=== PATIENT | female | born 1960 | race Caucasian/White ===

== ENCOUNTER → 2017-02-19 | Outpatient (CLI) | payer MEDICARE, BC ==
[~2017-02-19] MED LIST: ASTAGRAF XL5 MG PO; BYSTOLIC10 MG PO; CARDURA4 M1 PO; COMBIPATCH 0.01 EACH TD; DYAZIDE 37.5/251 CAP; EPOGEN2000 U/ML IJ; FERREX 150 FOR1 EACH PO; FERRIC X-150150 MG PO; FLUOXETINE HCL20 M1 PO; KCL; LIPITOR20 MG PO; NAPROSYN250 M1 PO; NEURONTIN300 MG PO; NEXIUM PO; NORVASC; PREDNISONE10 MG PO; RENVELA800 MG PO; VITAMIN D31000 UNI1 PO; ZETIA PO; ZOCOR PO; ZORTRESS0.75 MG PO; ZYRTEC PO; [UNRECOGNIZED DRUG - OTHER] PO
[2017-02-19 15:53] LABS: HEMATOCRIT 27.4 % (35.0-45.0); HEMOGLOBIN 8.6 gm/dL (12.0-16.0)
== END | disposition home or self-care (01) ==
LOC: CSSDAY 10:52
PROVIDERS: Internal Medicine Nephrology
DX: N18.4 Chronic kidney disease, stage 4 (severe) (principal); D63.1 Anemia in chronic kidney disease
CPT/HCPCS: 36415; 85014; 85018; 96372; J0885

== ENCOUNTER 2017-02-23 23:59 | Emergency (ER) | payer MEDICARE, BC ==
--- NOTE | ~2017-02-23 | EKG ---
PATIENT: YOHAN ALVAREZ UNIT #: [id number] Ventricular Rate: 76 BPM Atrial Rate: 76 BPM P-R Interval: 142 ms QRS Duration: 84 ms Q-T Interval: 392 ms QTC Calculation(Bezet): 441 ms P [place]: 41 degrees Calculated R [place]: 36 degrees Calculated T [place]: 62 degrees Diagnosis Line: Normal sinus rhythm Diagnosis Line: Normal ECG Diagnosis Line: When compared with ECG of 06-JUN-2016 07:25, Diagnosis Line: No significant change was found Diagnosis Line: Confirmed by JACI WARE MD ([id number]) on 02/24/2017 Diagnosis Line: 10:09:42 PM INTERPRETING MD: JEANIE BRITT
[~2017-02-23 23:59] MED LIST changes: -ASTAGRAF XL5 MG PO; -BYSTOLIC10 MG PO; -CARDURA4 M1 PO; -COMBIPATCH 0.01 EACH TD; -FERREX 150 FOR1 EACH PO; -FLUOXETINE HCL20 M1 PO; -LIPITOR20 MG PO; -NEURONTIN300 MG PO; -PREDNISONE10 MG PO; -ZETIA PO; -ZORTRESS0.75 MG PO
[2017-02-24 02:52] LABS: BASOPHIL% 0.2 % (0-2.5); EOSINOPHIL# 0.1 X10e3 (0-0.7); EOSINOPHIL% 1.5 % (0.0-7.0); HEMOGLOBIN 9.4 gm/dL (12.0-16.0); LYMPHOCYTE# 0.4 X10e3 (1.0-3.5); LYMPHOCYTE% 6.1 % (17.0-45.0); MEAN CELL VOLUME 86.6 FL (83-96); MEAN CORPUSCULAR HEMOGLOBIN 27.1 PG (28-34); MEAN CORPUSCULAR HGB CONC 31.3 g/dL (30-36); MEAN PLATELET VOLUME 8.2 FL (6.5-11.5); MONOCYTE# 0.6 X10e3 (0-1.0); MONOCYTE% 8.8 % (3.0-12.0); NEUTROPHIL# 6.1 X10e3 (1.5-7.1); NEUTROPHIL% 83.4 % (40-75); PLATELET COUNT 158 X10e3 (140-420); RED BLOOD COUNT 3.47 X10e (3.90-5.30); RED CELL DISTRIBUTION WIDTH 16.5 % (11.0-15.5); WHITE BLOOD COUNT 7.3 X10e3 (4.0-10.5)
[2017-02-24 02:54] LABS: DIFF IND NO
[2017-02-24 03:15] LABS: ALBUMIN SERUM 3.5 g/dL (3.5-5.0); BILIRUBIN, DIRECT 0.1 mg/dL (0.0-0.2); BILIRUBIN,INDIRECT 0.7 mg/dL (0.0-0.9); BILIRUBIN,TOTAL 0.8 mg/dL (0.2-2.0); BUN/CREATININE RATIO 14.82; CALCIUM SERUM 9.3 mg/dL (8.4-10.2); CREATININE SERUM 2.9 mg/dL (0.6-1.4); GLOM FILT RATE Estimated 17.3 mL/min (>60); POTASSIUM 4.2 mmol/L (3.5-5.1); PROTEIN TOTAL SERUM 6.7 g/dL (6.0-8.3)
[2017-07-14] MEDS ORDERED: ZETIA PO (09:59)
[2017-07-14] MEDS ORDERED: LIPITOR20 MG PO (09:59)
[2017-07-14] MEDS ORDERED: FLUOXETINE HCL20 M1 PO (09:59)
[2017-07-14] MEDS ORDERED: CARDURA4 M1 PO (10:00)
[2017-07-14] MEDS ORDERED: BYSTOLIC10 MG PO (10:02)
[2017-07-14] MEDS ORDERED: COMBIPATCH 0.01 EACH TD (10:03)
[2017-07-14] MEDS ORDERED: PREDNISONE10 MG PO (13:35)
[2017-07-14] MEDS ORDERED: ZORTRESS0.75 MG PO (13:36)
[2017-07-14] MEDS ORDERED: NEURONTIN300 MG PO (13:36)
[2017-07-14] MEDS ORDERED: ASTAGRAF XL5 MG PO (13:37)
[2017-07-14] MEDS ORDERED: FERREX 150 FOR1 EACH PO (13:37)
== END 2017-02-24 05:02 | disposition home or self-care (01) ==
LOC: CED 23:59
PROVIDERS: Emergency Medicine
DX: K21.0 Gastro-esophageal reflux disease with esophagitis (principal); I10 Essential (primary) hypertension; Z88.1 Allergy status to other antibiotic agents; Z88.5 Allergy status to narcotic agent
CPT/HCPCS: 36415; 80048; 80076; 82150; 83690; 85025; 93005; 96374; 96375; 99284; J2270; J2765

== ENCOUNTER → 2017-03-04 | Outpatient (CLI) | payer BC, MEDICARE ==
[~2017-03-04] MED LIST changes: +ASTAGRAF XL5 MG PO; +BYSTOLIC10 MG PO; +CARDURA4 M1 PO; +COMBIPATCH 0.01 EACH TD; +FERREX 150 FOR1 EACH PO; +FLUOXETINE HCL20 M1 PO; +LIPITOR20 MG PO; +NEURONTIN300 MG PO; +PREDNISONE10 MG PO; +ZETIA PO; +ZORTRESS0.75 MG PO
--- NOTE | ~2017-03-04 | ST ---
Unit #: [id number] #: [id number] Patient: YOHAN ALVAREZ [id number] [address] [address] [id number] O MR#: [id number] NAME: YOHAN ALVAREZ : 1960 SEX: F STUDY DATE/TIME: 03/04/2017 UNIT: [facility] ROOM: STUDY DESCRIPTION: Attending Physician: Neel Curiel M.D. Referring Physician: Neel Curiel M.D. Primary Care Physician: Malathi Oleary Jr., M.D. CARDIOLOGY REPORT EXAM EKG portion of Lexiscan Cardiolite stress test. REASON FOR EXAM Chest pain. DISCUSSION Baseline EKG reveals sinus rhythm with a ventricular rate of 62 beats per minute. Early repolarization noted. No acute ST or T wave changes. The patient exercised on the treadmill for a little over two minutes but developed shortness of breath and fatigue. The test was stopped and she was changed to a resting Lexiscan Cardiolite stress test. A total of 0.4 mg of Lexiscan was injected per protocol followed by Cardiolite. There were no complaints of chest pain during the test but she did develop some pressure in recovery that was rated a 1/10. There were no arrhythmias noted. There were no ST or T wave changes to suggest ischemia. Maximal heart rate was 78 beats per minute with a maximal blood pressure of 189/79 mmHg. The test was stopped due to protocol completion. The patient was kept in the department for review of preliminary pictures. Pictures were reportedly abnormal; however, the patient has a history of a renal transplant and creatinine has recently been high. She will be maintained on medical management at this time due to elevated creatinine. Will speak with Dr. Curiel about options for medical management. IMPRESSION 1. Negative EKG portion of Lexiscan Cardiolite stress test. 2. The patient complained of chest pain described as 1/10 with pressure in recovery. 3. There were no sustained arrhythmias noted. 4. There were no ST or T-wave changes to suggest ischemia. 5. Preliminary pictures were abnormal. Final report is pending. The patient will be continued on medical management at this time due to history of renal transplant and currently elevated creatinine. Dr. Curiel to follow with the patient in the office. Dictated by... Alison Fu APRN for Rama Allen Unit #: [id number] #: [id number] Patient: YOHAN ALVAREZ TD: 03/04/2017 14:46 JOB #: [id number] CARDIOLOGY REPORT Page 1 of 1 X CARDIOLOGY REPORT
--- NOTE | ~2017-03-04 | CR63 ---
[facility] A Service of [facility] & [facility] RADIOLOGY TEXT RESULTS PATIENT: YOHAN ALVAREZ LOCATION: [facility] : 58 UNIT #: [id number] AGE: [address]: Neel Curiel MD SEX: F ORDER DR: [id number] [facility] [address] [place], [place] [address] [id number] O MR#: [id number] Acc #: [id number] NAME: YOHAN ALVAREZ : 1960 SEX: F STUDY DATE/TIME: 03/04/2017 11:46 UNIT: [facility] ROOM: STUDY DESCRIPTION: CR Chest 2 View Attending Physician: Neel Curiel M.D. Referring Physician: Neel Curiel M.D. Ordering Physician: Neel Curiel M.D. Primary Care Physician: Malathi Oleary Jr., M.D. MEDICAL IMAGING REPORT This report is preliminary unless electronic signature is present EXAM 2-view chest INDICATIONS Congestive heart failure. Restaging. Shortness of air. FINDINGS PA and lateral views of the chest compared to 06/10/2016. The heart and mediastinal contours are normal. Central pulmonary vasculature is normal. No pleural effusion. IMPRESSION Negative chest radiograph. Dictated by... Hima Mcqueen M.D. THIS IS AN ELECTRONICALLY VERIFIED REPORT Hima Mcqueen M.D. at 03/04/2017 4:31 PM GINNY/salena TD: 03/04/2017 13:40 JOB #: [id number] MEDICAL IMAGING REPORT Page 1 of 1 COPY
--- NOTE | ~2017-03-04 | TH ---
Unit #: [id number] #: [id number] Patient: YOHAN ALVAREZ [id number] [address] [address] [id number] O MR#: [id number] NAME: YOHAN ALVAREZ : 1960 SEX: F STUDY DATE/TIME: 03/04/2017 UNIT: [facility] ROOM: STUDY DESCRIPTION: Attending Physician: Neel Curiel M.D. Referring Physician: Neel Curiel M.D. Primary Care Physician: Malathi Oleary Jr., M.D. CARDIOLOGY REPORT EXAM Lexiscan Cardiolite stress test, nuclear portion. PROCEDURE Using technetium 99m labeled Cardiolite, rest and stress SPECT images were obtained. Multiple SPECT images were obtained in various views including horizontal and vertical long axis and short axis views of the left ventricle. Images were obtained by gated SPECT method. The patient was administered 11.56 mCi of Cardiolite at rest. The patient was administered 32.7 mCi of Cardiolite after Lexiscan infusion was completed. On the stress images, there is a medium-sized area of moderate decreased isotope activity involving the inferior wall. The rest images show a smaller area of mild decreased isotope activity inferiorly. Comparing rest and stress images, a medium sized area of possible stress-induced ischemia involving the inferior wall of the left ventricle cannot be ruled out. The left ventricular ejection fraction is calculated to be 51%. The left ventricular cavity is [id number] dilated both at rest and post stress. CONCLUSION 1. Suspicion for medium sized area of stress-induced ischemia involving the inferior wall of the left ventricle. 2. The left ventricular ejection fraction is calculated to be 51%. 3. There is no focal wall motion abnormality seen. 4. The left ventricular cavity is [id number] dilated both at rest and post stress. 5. It must be noted that the patient had significant gut uptake. Patient also has what appears to be a lesion in the liver, possibly cyst. Clinical correlation is requested. Dictated by... Rama Allen TD: 03/04/2017 15:54 JOB #: [id number] Unit #: [id number] #: [id number] Patient: YOHAN ALVAREZ CARDIOLOGY REPORT Page 1 of 1 X Chantal Sylvester MD <ELECTRONICALLY SIGNED> 06/06/17 1426 CARDIOLOGY REPORT
== END | disposition home or self-care (01) ==
LOC: CRAD 07:40
DX: R07.9 Chest pain, unspecified (principal); R06.02 Shortness of breath; I10 Essential (primary) hypertension; R79.89 Other specified abnormal findings of blood chemistry; I51.7 Cardiomegaly; E78.5 Hyperlipidemia, unspecified; Z87.09 Personal history of other diseases of the respiratory system; Z94.0 Kidney transplant status
CPT/HCPCS: 71020; 78452; 93017; A9500; J2785

== ENCOUNTER → 2017-03-05 | Outpatient (CLI) | payer MEDICARE, BC ==
[2017-03-05 10:08] LABS: HEMATOCRIT 25.6 % (35.0-45.0); MEAN CELL VOLUME 85.4 FL (83-96); MEAN CORPUSCULAR HEMOGLOBIN 26.6 PG (28-34); MEAN CORPUSCULAR HGB CONC 31.1 g/dL (30-36); MEAN PLATELET VOLUME 8.2 FL (6.5-11.5); RED BLOOD COUNT 2.99 X10e (3.90-5.30); RED CELL DISTRIBUTION WIDTH 15.9 % (11.0-15.5); WHITE BLOOD COUNT 6.3 X10e3 (4.0-10.5)
[2017-03-05 10:55] LABS: ALBUMIN SERUM 2.8 g/dL (3.5-5.0); BILIRUBIN,TOTAL 0.6 mg/dL (0.2-2.0); BUN/CREATININE RATIO 14.82; CALCIUM SERUM 8.8 mg/dL (8.4-10.2); CREATININE SERUM 2.9 mg/dL (0.6-1.4); GLOM FILT RATE Estimated 17.3 mL/min (>60); PHOSPHOROUS 3.9 mg/dL (2.5-4.6); POTASSIUM 4.9 mmol/L (3.5-5.1); PROTEIN TOTAL SERUM 5.7 g/dL (6.0-8.3)
[2017-03-05 11:07] LABS: FOLATE (FOLIC ACID) 7.5 ng/mL (>5.8)
[2017-03-11 20:54] LABS: CALCIUM (PTHINTACT) 8.8 mg/dL (8.6-10.4)
== END | disposition home or self-care (01) ==
LOC: CLAB 09:20
PROVIDERS: Internal Medicine Nephrology
DX: N18.4 Chronic kidney disease, stage 4 (severe) (principal); D63.1 Anemia in chronic kidney disease; Z94.0 Kidney transplant status; Z79.899 Other long term (current) drug therapy
CPT/HCPCS: 36415; 80053; 82306; 82310; 82607; 82728; 82746; 83540; 83550; 83970; 84100; 84550; 85027; 96372; J0885

== ENCOUNTER → 2017-03-13 | Outpatient (CLI) | payer MEDICARE, BC | END | disposition home or self-care (01) | LOC: CSSDAY 15:24 | DX: N18.4 Chronic kidney disease, stage 4 (severe) (principal); D63.1 Anemia in chronic kidney disease; Z94.0 Kidney transplant status; Z79.899 Other long term (current) drug therapy | CPT/HCPCS: 96365; 96366; J1756 ==

== ENCOUNTER → 2017-03-16 | Outpatient (CLI) | payer MEDICARE, BC | END | disposition home or self-care (01) | LOC: CSSDAY 13:45 | DX: N18.4 Chronic kidney disease, stage 4 (severe) (principal); D63.1 Anemia in chronic kidney disease; Z94.0 Kidney transplant status; Z79.899 Other long term (current) drug therapy | CPT/HCPCS: 96365; 96366; J1756 ==

== ENCOUNTER → 2017-03-17 | Outpatient (CLI) | payer MEDICARE, BC | END | disposition home or self-care (01) | LOC: CSSDAY 12:36 | DX: N18.4 Chronic kidney disease, stage 4 (severe) (principal); D63.1 Anemia in chronic kidney disease; Z94.0 Kidney transplant status; Z79.899 Other long term (current) drug therapy | CPT/HCPCS: 96365; J1756 ==

== ENCOUNTER → 2017-03-19 | Outpatient (CLI) | payer MEDICARE, BC ==
[2017-03-19 10:22] LABS: HEMOGLOBIN 8.1 gm/dL (12.0-16.0)
== END | disposition home or self-care (01) ==
LOC: CSSDAY 09:50
PROVIDERS: Internal Medicine Nephrology
DX: N18.4 Chronic kidney disease, stage 4 (severe) (principal); D63.1 Anemia in chronic kidney disease; Z94.0 Kidney transplant status
CPT/HCPCS: 36415; 85014; 85018; 96372; J0885

== ENCOUNTER → 2017-03-26 | Outpatient (CLI) | payer MEDICARE, BC ==
[2017-03-26 12:55] LABS: HEMATOCRIT 28.2 % (35.0-45.0); HEMOGLOBIN 8.6 gm/dL (12.0-16.0)
== END | disposition home or self-care (01) ==
LOC: CSSDAY 10:00 → CLAB 10:58
PROVIDERS: Internal Medicine Nephrology
DX: N18.4 Chronic kidney disease, stage 4 (severe) (principal); D63.1 Anemia in chronic kidney disease; Z94.0 Kidney transplant status; Z51.81 Encounter for therapeutic drug level monitoring; Z79.899 Other long term (current) drug therapy
CPT/HCPCS: 36415; 85014; 85018; 96372; J0885

== ENCOUNTER → 2017-04-02 | Outpatient (CLI) | payer MEDICARE, BC ==
[2017-04-02 10:56] LABS: HEMATOCRIT 28.2 % (35.0-45.0); HEMOGLOBIN 8.7 gm/dL (12.0-16.0); MEAN CELL VOLUME 83.9 FL (83-96); MEAN CORPUSCULAR HEMOGLOBIN 25.9 PG (28-34); MEAN CORPUSCULAR HGB CONC 30.8 g/dL (30-36); RED BLOOD COUNT 3.36 X10e (3.90-5.30); RED CELL DISTRIBUTION WIDTH 16.9 % (11.0-15.5)
[2017-04-02 11:58] LABS: ALBUMIN SERUM 3.4 g/dL (3.5-5.0); BILIRUBIN,TOTAL 0.8 mg/dL (0.2-2.0); BUN/CREATININE RATIO 21.85; CALCIUM SERUM 9.1 mg/dL (8.4-10.2); CREATININE SERUM 2.7 mg/dL (0.6-1.4); GLOM FILT RATE Estimated 18.8 mL/min (>60); PHOSPHOROUS 4.1 mg/dL (2.5-4.6); PROTEIN TOTAL SERUM 5.8 g/dL (6.0-8.3); URIC ACID 6.9 mg/dL (2.6-7.2)
[2017-04-02 12:03] LABS: POTASSIUM 5.9 mmol/L (3.5-5.1)
[2017-04-02 12:16] LABS: FOLATE (FOLIC ACID) 15.7 ng/mL (>5.8)
[2017-04-07 01:44] LABS: CALCIUM (PTHINTACT) 9.2 mg/dL (8.6-10.4)
== END | disposition home or self-care (01) ==
LOC: CSSDAY 10:37
PROVIDERS: Internal Medicine Nephrology
DX: N18.4 Chronic kidney disease, stage 4 (severe) (principal); D63.1 Anemia in chronic kidney disease; Z94.0 Kidney transplant status; Z79.899 Other long term (current) drug therapy
CPT/HCPCS: 36415; 80053; 82306; 82310; 82607; 82728; 82746; 83540; 83970; 84100; 84466; 84550; 85027; 96372; J0885

== ENCOUNTER → 2017-04-08 | Outpatient (CLI) | payer MEDICARE, BC ==
[2017-04-08 16:14] LABS: CREATININE SERUM 2.7 mg/dL (0.6-1.4); GLOM FILT RATE Estimated 18.8 mL/min (>60)
[2017-04-08 16:21] LABS: POTASSIUM 5.7 mmol/L (3.5-5.1)
== END | disposition home or self-care (01) ==
LOC: CLAB 14:55
PROVIDERS: Internal Medicine Nephrology
DX: N18.4 Chronic kidney disease, stage 4 (severe) (principal)
CPT/HCPCS: 36415; 80048

== ENCOUNTER → 2017-04-09 | Outpatient (CLI) | payer MEDICARE, BC ==
[2017-04-09 13:20] LABS: HEMATOCRIT 30.2 % (35.0-45.0); HEMOGLOBIN 9.2 gm/dL (12.0-16.0)
== END | disposition home or self-care (01) ==
LOC: CSSDAY 10:00
PROVIDERS: Internal Medicine Nephrology
DX: N18.4 Chronic kidney disease, stage 4 (severe) (principal); D63.1 Anemia in chronic kidney disease; Z94.0 Kidney transplant status; Z79.899 Other long term (current) drug therapy
CPT/HCPCS: 36415; 85014; 85018; 96372; J0885

== ENCOUNTER → 2017-04-16 | Outpatient (CLI) | payer MEDICARE, BC ==
[2017-04-16 06:49] LABS: HEMATOCRIT 30.4 % (35.0-45.0); HEMOGLOBIN 9.5 gm/dL (12.0-16.0)
== END | disposition home or self-care (01) ==
LOC: CSSDAY 06:24
PROVIDERS: Internal Medicine Nephrology
DX: N18.4 Chronic kidney disease, stage 4 (severe) (principal); D63.1 Anemia in chronic kidney disease; Z94.0 Kidney transplant status
CPT/HCPCS: 36415; 85014; 85018; 96372; J0885

== ENCOUNTER → 2017-04-23 | Outpatient (CLI) | payer MEDICARE, BC ==
[2017-04-23 14:34] LABS: HEMATOCRIT 36.6 % (35.0-45.0); HEMOGLOBIN 11.3 gm/dL (12.0-16.0)
== END | disposition home or self-care (01) ==
LOC: CSSDAY 09:00
PROVIDERS: Internal Medicine Nephrology
DX: N18.4 Chronic kidney disease, stage 4 (severe) (principal); D63.1 Anemia in chronic kidney disease; Z94.0 Kidney transplant status; Z79.899 Other long term (current) drug therapy
CPT/HCPCS: 36415; 85014; 85018; J0885

== ENCOUNTER → 2017-04-30 | Outpatient (CLI) | payer MEDICARE, BC ==
[2017-04-30 14:49] LABS: HEMATOCRIT 33.2 % (35.0-45.0); HEMOGLOBIN 10.2 gm/dL (12.0-16.0)
== END | disposition home or self-care (01) ==
LOC: CSSDAY 14:23
PROVIDERS: Internal Medicine Nephrology
DX: N18.4 Chronic kidney disease, stage 4 (severe) (principal); D63.1 Anemia in chronic kidney disease; Z94.0 Kidney transplant status; Z79.899 Other long term (current) drug therapy
CPT/HCPCS: 36415; 85014; 85018; J0885

== ENCOUNTER → 2017-05-07 | Outpatient (CLI) | payer MEDICARE, BC ==
[2017-05-07 07:21] LABS: HEMATOCRIT 34.9 % (35.0-45.0); HEMOGLOBIN 10.8 gm/dL (12.0-16.0)
== END | disposition home or self-care (01) ==
LOC: CSSDAY 06:32
PROVIDERS: Internal Medicine Nephrology
DX: N18.4 Chronic kidney disease, stage 4 (severe) (principal); D63.1 Anemia in chronic kidney disease; Z94.0 Kidney transplant status; Z79.84 Long term (current) use of oral hypoglycemic drugs
CPT/HCPCS: 36415; 80053; 80197; 80299; 85014; 85018; 85025; 87799; 96372; J0885

== ENCOUNTER → 2017-05-21 | Outpatient (CLI) | payer MEDICARE, BC ==
[2017-05-21 16:30] LABS: HEMATOCRIT 36.5 % (35.0-45.0); HEMOGLOBIN 11.2 gm/dL (12.0-16.0)
== END | disposition home or self-care (01) ==
LOC: CLAB 15:50
PROVIDERS: Internal Medicine Nephrology
DX: N18.4 Chronic kidney disease, stage 4 (severe) (principal); D63.1 Anemia in chronic kidney disease; Z94.0 Kidney transplant status
CPT/HCPCS: 36415; 85014; 85018; J0885

== ENCOUNTER → 2017-05-28 | Outpatient (CLI) | payer MEDICARE, BC ==
[2017-05-28 06:24] LABS: HEMATOCRIT 34.2 % (35.0-45.0); HEMOGLOBIN 10.6 gm/dL (12.0-16.0)
== END | disposition home or self-care (01) ==
LOC: CSSDAY 05:53
PROVIDERS: Internal Medicine Nephrology
DX: N18.4 Chronic kidney disease, stage 4 (severe) (principal); D63.1 Anemia in chronic kidney disease; Z94.0 Kidney transplant status; Z79.899 Other long term (current) drug therapy
CPT/HCPCS: 36415; 85014; 85018; 96372; J0885

== ENCOUNTER → 2017-06-01 | Outpatient (CLI) | payer MEDICARE, BC ==
[2017-06-01 08:04] LABS: EOSINOPHIL# 0.2 X10e3 (0-0.7); EOSINOPHIL% 3.3 % (0.0-7.0); HEMATOCRIT 36.1 % (35.0-45.0); HEMOGLOBIN 11.2 gm/dL (12.0-16.0); LYMPHOCYTE# 0.5 X10e3 (1.0-3.5); LYMPHOCYTE% 11.2 % (17.0-45.0); MEAN CELL VOLUME 82.8 FL (83-96); MEAN CORPUSCULAR HEMOGLOBIN 25.6 PG (28-34); MEAN CORPUSCULAR HGB CONC 30.9 g/dL (30-36); MONOCYTE# 0.5 X10e3 (0-1.0); MONOCYTE% 10.9 % (3.0-12.0); NEUTROPHIL# 3.4 X10e3 (1.5-7.1); NEUTROPHIL% 73.6 % (40-75); PLATELET COUNT 113 X10e3 (140-420); RED BLOOD COUNT 4.37 X10e (3.90-5.30); RED CELL DISTRIBUTION WIDTH 17.5 % (11.0-15.5); WHITE BLOOD COUNT 4.7 X10e3 (4.0-10.5)
[2017-06-01 08:08] LABS: DIFF IND NO
[2017-06-01 08:52] LABS: ALBUMIN SERUM 3.5 g/dL (3.5-5.0); BILIRUBIN,TOTAL 0.8 mg/dL (0.2-2.0); BUN/CREATININE RATIO 13.14; CALCIUM SERUM 9.2 mg/dL (8.4-10.2); CREATININE SERUM 3.5 mg/dL (0.6-1.4); GLOM FILT RATE Estimated 13.6 mL/min (>60); POTASSIUM 4.5 mmol/L (3.5-5.1); PROTEIN TOTAL SERUM 5.9 g/dL (6.0-8.3)
[2017-06-01 16:16] LABS: EVEROLIMUS - JH 9.6 ng/mL (3.0-8.0)
[2017-06-01 16:18] LABS: FK506 (TACROLIMUS) - JH 7.5 ng/mL (5.0-20.0)
== END | disposition home or self-care (01) ==
LOC: CTPL 06:42
PROVIDERS: Surgery
DX: Z48.22 Encounter for aftercare following kidney transplant (principal); Z00.00 Encounter for general adult medical examination without abnormal findings; T45.1X1D Poisoning by antineoplastic and immunosuppressive drugs, accidental (unintentional), subsequent encounter; B97.7 Papillomavirus as the cause of diseases classified elsewhere; Z79.891 Long term (current) use of opiate analgesic
CPT/HCPCS: 36415; 80053; 80197; 80299; 82465; 84478; 85025; 87799

== ENCOUNTER → 2017-06-11 | Outpatient (CLI) | payer MEDICARE, BC ==
[2017-06-11 12:10] LABS: HEMATOCRIT 36.2 % (35.0-45.0); HEMOGLOBIN 11.2 gm/dL (12.0-16.0)
[2017-06-11 12:43] LABS: ALBUMIN SERUM 3.5 g/dL (3.5-5.0); BUN/CREATININE RATIO 16.78; CALCIUM SERUM 8.9 mg/dL (8.4-10.2); CREATININE SERUM 2.8 mg/dL (0.6-1.4); GLOM FILT RATE Estimated 17.9 mL/min (>60); PHOSPHOROUS 3.1 mg/dL (2.5-4.6); POTASSIUM 4.9 mmol/L (3.5-5.1)
== END | disposition home or self-care (01) ==
LOC: CSSDAY 11:27
PROVIDERS: Internal Medicine Nephrology
DX: N18.4 Chronic kidney disease, stage 4 (severe) (principal); D63.1 Anemia in chronic kidney disease; Z94.0 Kidney transplant status
CPT/HCPCS: 36415; 80069; 85014; 85018; J0885

== ENCOUNTER → 2017-06-25 | Outpatient (CLI) | payer MEDICARE, BC ==
[2017-06-25 06:15] LABS: HEMATOCRIT 39.5 % (35.0-45.0); HEMOGLOBIN 12.4 gm/dL (12.0-16.0)
== END | disposition home or self-care (01) ==
LOC: CSSDAY 05:43
PROVIDERS: Internal Medicine Nephrology
DX: N18.4 Chronic kidney disease, stage 4 (severe) (principal); D63.1 Anemia in chronic kidney disease; Z94.0 Kidney transplant status
CPT/HCPCS: 36415; 85014; 85018; J0885

== ENCOUNTER → 2017-07-21 | Outpatient (CLI) | payer MEDICARE, BC ==
[2017-07-21 08:40] LABS: HEMATOCRIT 34.6 % (35.0-45.0); HEMOGLOBIN 11.2 gm/dL (12.0-16.0); MEAN CELL VOLUME 84.6 FL (83-96); MEAN CORPUSCULAR HEMOGLOBIN 27.4 PG (28-34); MEAN CORPUSCULAR HGB CONC 32.3 g/dL (30-36); MEAN PLATELET VOLUME 7.6 FL (6.5-11.5); RED BLOOD COUNT 4.09 X10e (3.90-5.30); WHITE BLOOD COUNT 5.1 X10e3 (4.0-10.5)
[2017-07-21 09:51] LABS: ALBUMIN SERUM 3.2 g/dL (3.5-5.0); BILIRUBIN,TOTAL 0.7 mg/dL (0.2-2.0); BUN/CREATININE RATIO 20.43; CREATININE SERUM 2.3 mg/dL (0.6-1.4); GLOM FILT RATE Estimated 22.7 mL/min (>60); PHOSPHOROUS 4.8 mg/dL (2.5-4.6); POTASSIUM 4.3 mmol/L (3.5-5.1); PROTEIN TOTAL SERUM 5.6 g/dL (6.0-8.3); URIC ACID 8.5 mg/dL (2.6-7.2)
[2017-07-21 09:55] LABS: FERRITIN 594 ng/mL (11-307)
[2017-07-21 10:01] LABS: FOLATE (FOLIC ACID) >23.3 ng/mL (>5.8)
== END | disposition home or self-care (01) ==
LOC: CSSDAY 08:00
PROVIDERS: Internal Medicine Nephrology
DX: N18.4 Chronic kidney disease, stage 4 (severe) (principal); D63.1 Anemia in chronic kidney disease; Z94.0 Kidney transplant status
CPT/HCPCS: 36415; 80053; 82306; 82310; 82607; 82728; 82746; 83540; 83550; 83970; 84100; 84550; 85027; J0885